=== PATIENT | female | born 1995 | race Caucasian/White ===

== ENCOUNTER 2016-05-09 13:27 | Emergency (ER) | payer MEDICAID ==
--- NOTE | 2016-05-09 14:03 | ERPHSYRPT ---
- History of Present Illness Time Seen by Provider: 05/09/16 13:33 Historian: patient, family Exam Limitations: no limitations Patient Subjective Stated Complaint: PT STATES THAT SHE RECENLTY FOUND OUT THAT SHE WAS UNSURE WHEN HER LAST PERIOD WAS "I KNOW IT WAS IN MARCH" STATES THAT SHE HAS BEEN HAVING SOME CRAMPING WITH PINKISH SPOTTING "BUT ONLY WHEN I WIPE". X 1 1/2 WEEKS STATES SHE WAS SEEN AT [facility] LAST WEEK FOR THE SAME THING "BUT THEY DIDN'T DO ANYTHING" DENIES VOMITING STATES SHE HAS HAD SOME NAUSEA. Triage Nursing Assessment: PT ALERT WARM AND DRY RESP EASY NON LABORED PT AMBULATED TO ROOM WITHOUT DIFFICULTY. ABDOMEN SOFT NON TENDER. Physician History: patient with LMP first week of Mar 2016; [id number]; EDC ?; hasnt seen her MD yet; abdominal cramps for a week; no bleeding or vag d/c; no N&V; no fever or chills ; sex this am; no pain or bleeding; otherwise healthy Timing/Duration: week(s) (1 ), intermittent, gradual onset Activities at Onset: rest Quality: cramping Abdominal Pain Onset Location: suprapubic Pain Radiation: no radiation Severity of Pain-Max: mild Severity of Pain-Current: mild Modifying Factors: Improves With: nothing Associated Symptoms: denies symptoms Previous symptoms: no prior history Allergies/Adverse Reactions: No Known Drug Allergies Allergy (Verified 10/22/15 15:55) Home Medications: No Reportable Medications [No Reported Medications] 10/26/15 [History] Hx Tetanus, Diphtheria Vaccination/Date Given: Yes Hx Influenza Vaccination/Date Given: No Hx Pneumococcal Vaccination/Date Given: No Immunizations Up to Date: Yes - Review of Systems Constitutional: No Symptoms Eyes: No Symptoms Ears, Nose, & Throat: No Symptoms Respiratory: No Cough, No Dyspnea, No Wheezing Cardiac: No Chest Pain, No Palpitations, No Syncope Abdominal/Gastrointestinal: Abdominal Pain (mild intermittant cramping low), No Nausea, No Vomiting, No Diarrhea, No Constipation Genitourinary Symptoms: No Dysuria, No Frequency, No Hematuria, No Incontinence , No Flank Pain, No Vaginal Bleeding, No Vaginal Discharge, No Vaginal Itching Musculoskeletal: No Symptoms Skin: No Symptoms Neurological: No Symptoms Psychological: No Symptoms Endocrine: No Symptoms Hematologic/Lymphatic: No Symptoms Immunological/Allergic: No Symptoms - Past Medical History Pertinent Past Medical History: No Neurological History: No Pertinent History ENT History: No Pertinent History Cardiac History: No Pertinent History Respiratory History: No Pertinent History Endocrine Medical History: No Pertinent History Musculoskeletal History: No Pertinent History GI Medical History: Other History: No Pertinent History Psycho-Social History: No Pertinent History Female Reproductive Disorders: No Pertinent History - Past Surgical History Past Surgical History: No Neuro Surgical History: No Pertinent History Cardiac: No Pertinent History Respiratory: No Pertinent History Gastrointestinal: No Pertinent History Genitourinary: No Pertinent History Musculoskeletal: No Pertinent History Female Surgical History: No Pertinent History Other Surgical History: DENIES - Social History Smoking Status: Current every day smoker How long have you smoked: 6 YEARS Exposure to second hand smoke: Yes Alcohol Use: None Drug Use: none Patient Lives Alone: No Significant Family History: no pertinent family hx - Female History Hx Last Menstrual Period: Mar Now: Yes - Nursing Vital Signs Nursing Vital Signs: Initial Vital Signs Temperature 98 F Temperature Source Oral Pulse Rate 88 Respiratory Rate 18 Blood Pressure [Right Arm] 103/55 Pain Intensity 5 - Physical Exam General Appearance: mild distress, alert, anxiety, thin Eye Exam: PERRL/EOMI, eyes nml inspection, No photophobia Ears, Nose, Throat Exam: normal ENT inspection, TMs normal, pharynx normal, moist mucous membranes Neck Exam: normal inspection, non-tender, supple, full range of motion, No JVD Respiratory Exam: normal breath sounds, lungs clear, airway intact, No chest tenderness, No respiratory distress, No rhonchi, No wheezing Cardiovascular Exam: regular rate/rhythm, normal heart sounds, normal peripheral pulses, capillary refill <2 sec, No murmur Gastrointestinal/Abdomen Exam: soft, normal bowel sounds, No tenderness, No distention, No mass, No guarding, No rebound, No organomegaly Pelvic Exam: normal external exam, vaginal discharge (clear; no odor; ), other ( slight enlargement of uterus 6- 8 weeks; cx closed), No adnexal tenderness, No adnexal mass, No mass, No cervical motion tenderness, No vaginal bleeding, No uterine tenderness Rectal Exam: deferred Back Exam: normal inspection, normal range of motion, No CVA tenderness Extremity Exam: normal inspection, normal range of motion, No anita's sign, No pedal edema Neurologic Exam: alert, oriented x 3, cooperative, nail welter II-XII nml as tested, normal mood/affect, nml cerebellar function, nml station & gait Skin Exam: normal color, warm, dry, No rash, No petechiae SpO2 Interpretation: normal SpO2: 99 Oxygen Delivery: Room Air - Course Nursing assessment & vital signs reviewed: Yes Ordered Tests: Active Orders 24 hr Category Date Time Status Pelvic Exam Assist STAT Care 05/09/16 13:56 Active Re-Check Vital Signs STAT Care 05/09/16 13:56 Active CBC W DIFF Stat Lab 05/09/16 14:20 Completed HCG QUALITATIVE,SERUM Stat Lab 05/09/16 14:20 Completed UA W/ MICROSCOPIC Stat Lab 05/09/16 14:20 Completed Wet Prep Stat Lab 05/09/16 14:20 Completed Lab/Rad Data: Laboratory Result Diagrams 05/09/16 14:20 Laboratory Results 05/09/16 05/09/16 05/09/16 Range/Units 14:20 14:20 14:20 WBC 8.7 (4.0-10.5) K/mm3 RBC 4.22 (4.1-5.4) M/mm3 Hgb 11.4 L (12.0-16.0) gm/dl Hct 35.2 (35-47) % MCV 83.4 (78-100) fl MCH 27.0 (26-32) pg MCHC 32.4 (32-36) g/dl RDW 14.1 H (11.5-14.0) % Plt Count 216 (150-450) K/mm3 MPV 10.3 H (6-9.5) fl Gran % 74.7 H (36.0-66.0) % Lymphocytes % 18.0 L (24.0-44.0) % Monocytes % 6.1 (0.0-12.0) % Eosinophils % 1.0 (0.00-5.0) % Basophils % 0.2 (0.0-0.4) % Basophils # 0.02 (0-0.4) Serum , Qual POSITIVE (Negative) Ur Collection Type Urine Color (YELLOW) Urine Appearance (CLEAR) Urine pH (5-6) Ur Specific [place] (1.005-1.025) Urine Protein (Negative) Urine Glucose (UA) (NEGATIVE) mg/dL Urine Ketones (NEGATIVE) Urine Nitrite (NEGATIVE) Urine Bilirubin (NEGATIVE) Urine Urobilinogen (0-1) mg/dL Urine WBC (Auto) (NEGATIVE) Urine RBC (Auto) (0-5) Kehinde/ul Urine Microscopic RBC (0-2) /HPF Urine Microscopic WBC (0-5) /HPF Ur Epithelial Cells (FEW) /HPF Urine Bacteria (NEGATIVE) /HPF Urine Mucus (NEGATIVE) /HPF WBC (Wet Prep) Rare RBC (Wet Prep) Moderate Epi Cells (Wet Prep) Few Bacteria (Wet Prep) Few Clue Cells (Wet Prep) None Seen Trichomonas (Wet Prep) None Seen Budding Yeast (Wet Prp) None Seen Specimen Received 05/09/16 Range/Units 14:20 WBC (4.0-10.5) K/mm3 RBC (4.1-5.4) M/mm3 Hgb (12.0-16.0) gm/dl Hct (35-47) % MCV (78-100) fl MCH (26-32) pg MCHC (32-36) g/dl RDW (11.5-14.0) % Plt Count (150-450) K/mm3 MPV (6-9.5) fl Gran % (36.0-66.0) % Lymphocytes % (24.0-44.0) % Monocytes % (0.0-12.0) % Eosinophils % (0.00-5.0) % Basophils % (0.0-0.4) % Basophils # (0-0.4) Serum , Qual (Negative) Ur Collection Type CATH Urine Color YELLOW (YELLOW) Urine Appearance SLIGHTLY CLOUDY (CLEAR) Urine pH 6.0 (5-6) Ur Specific [place] >=1.030 (1.005-1.025) Urine Protein TRACE (Negative) Urine Glucose (UA) NEGATIVE (NEGATIVE) mg/dL Urine Ketones LARGE-160 (NEGATIVE) Urine Nitrite NEGATIVE (NEGATIVE) Urine Bilirubin SMALL (NEGATIVE) Urine Urobilinogen 0.2 (0-1) mg/dL Urine WBC (Auto) NEGATIVE (NEGATIVE) Urine RBC (Auto) NEGATIVE (0-5) Kehinde/ul Urine Microscopic RBC 0-2 (0-2) /HPF Urine Microscopic WBC 0-2 (0-5) /HPF Ur Epithelial Cells FEW (FEW) /HPF Urine Bacteria FEW (NEGATIVE) /HPF Urine Mucus MANY (NEGATIVE) /HPF WBC (Wet Prep) RBC (Wet Prep) Epi Cells (Wet Prep) Bacteria (Wet Prep) Clue Cells (Wet Prep) Trichomonas (Wet Prep) Budding Yeast (Wet Prp) Specimen Received 05/09/16 1466 reviewed - Progress Progress: improved, re-examined (no change) Progress Note: 05/09/16 14:02 will get a pelvic and draw basics and recheck; boyfriend at bedside 05/09/16 15:10 rechecked; resting quietly; no pains; lab all ok; hcg pos; EDC calculated by dates at 12-11-16 so about 9 weeks now 05/09/16 15:26 shared results with patient; treatment plan and d/c instructions given Counseled pt/family regarding: lab results, diagnosis, need for follow-up - Departure Time of Disposition: 15:26 Departure Disposition: Home Clinical Impression: , Abdominal cramping complicating Condition: Stable Critical Care Time: No Referrals: SHAHANA TOWNSEND [Primary Care Provider] - Instructions: -- Discomforts and Remedies Additional Instructions: rest; make an appointment with OB doctor; maternal vitamins; Tylenol Follow-up with family doctor as directed. Call for appointment. Return if any problems. If you smoke please stop. Call or follow up with your family doctor for assistance if you need it to stop. Please wear your seatbelt when driving. Have a nice day. Thank you for allowing us to participate in your care today. :o) Dr Gil Ivey
[2016-05-09 14:43] LABS: BASOPHIL % 0.2 % (0.0-0.4); Granulocytes % 74.7 % (36.0-66.0); Mean Cell Volume 83.4 fl (78-100); Mean Platelet Volume 10.3 fl (6-9.5); Monocytes % 6.1 % (0.0-12.0); Platelet Count 216 K/mm3 (150-450); Red Blood Count 4.22 M/mm3 (4.1-5.4); Red Cell Distribution Width 14.1 % (11.5-14.0); White Blood Count 8.7 K/mm3 (4.0-10.5)
[2016-05-09 14:52] VITALS: BP 103/55
[2016-05-09 15:03] LABS: Collection Type CATH
[2016-05-09 15:04] LABS: COMPLETE URINE MICROSCOPIC? YES
[2016-05-09 15:05] LABS: Bacteria FEW /HPF (NEGATIVE); Bacteria Few; Clue Cells None Seen; Epithelial Cells FEW /HPF (FEW); Mucus MANY /HPF (NEGATIVE); Trichomonas None Seen; WBC 0-2 /HPF (0-5); Yeast None Seen
[2016-05-09 15:48] VITALS: PULSE 75; O2SAT 100
[2016-05-09 17:00] LABS: CHLAMYDIA DNA NEGATIVE
== END 2016-05-09 15:48 | disposition home or self-care (01) ==
LOC: ED 13:27
DX: O26.891 Other specified pregnancy related conditions, first trimester (principal); R10.9 Unspecified abdominal pain
CPT/HCPCS: 36415; 81000; 84703; 85025; 87210; 87490; 87590; 99284; P9612

== ENCOUNTER 2016-12-12 09:00 | Inpatient (IN) | payer MEDICAID ==
[2016-12-12 12:40] LABS: Bilirubin SMALL (NEGATIVE); Collection Type VOID; Glucose NEGATIVE (NEGATIVE); Leukocyte Esterase 2+ (NEGATIVE)
[2016-12-12 12:41] LABS: COMPLETE URINE MICROSCOPIC? YES
[2016-12-12] MEDS ORDERED: Lactated Ringers 1,000 ML IV ONE ×2 (14:04→17:36)
[2016-12-12 14:07] LABS: Bacteria MODERATE /HPF (NEGATIVE); Epithelial Cells FEW /HPF (FEW); WBC 25-50 /HPF (0-5)
--- NOTE | 2016-12-12 15:02 | XRAY ---
Indication: labor. 2-dimensional OB ultrasound performed. Comparison: May 30, 2016. Again there is a single viable intrauterine currently in cephalic presentation. Normal four-chamber heart with heart rate 133 BPM. Normal three-vessel cord and cord insertion. Visualized head, spine, stomach, kidneys, and bladder are unremarkable. Placenta is fundal without abnormal retroplacental fluid. BPD measures 8.82 cm corresponding to 35 weeks 5 days. HC measures 31.08 cm corresponding to 34 weeks 5 days. AC measures 30.25 cm corresponding to 34 weeks 1 day. FL measures 6.58 cm corresponding to 33 weeks 6 days. ESTEE is 14.3 cm. Impression: Again single viable intrauterine with mean gestational age 34 weeks 4 days. Normal progression of . Nothing acute.
[2016-12-12] MEDS ORDERED: ROCEPHIN 1 Gm-D5w 50 ml Bag** 1 G/50 ML IVPB IV ONE (15:35)
[2016-12-12] MEDS: Lactated Ringers 1,000 ML IV SCH (17:44)
[2016-12-12] MEDS ORDERED: Celestone Soluspan 6MG/ML IM ONE (18:37)
[2016-12-12] MEDS ORDERED: OMNIPEN 2 GM / NACL 100ML 100 ML IV ONE (21:19)
[2016-12-13] MEDS: OMNIPEN 1GM / NaCl 100ML 100 ML IV SCH ×2 (01:50→05:42)
[2016-12-13] MEDS: Lactated Ringers 1,000 ML IV SCH (03:24)
--- NOTE | 2016-12-13 09:44 | XRAY ---
Indication: Low heart rate with deceleration. Ultrasound biophysical profile study was performed. Comparison: None There is a single viable intrauterine with heart rate 131 BPM. Four-quadrant ESTEE is 11.1 cm. Largest amniotic pocket measures 4.2 cm. 2 points given for breathing, movements, tone, and qualitative amniotic fluid volume. Impression: Total biophysical profile score is 8 out of 8.
[2016-12-13] MEDS ORDERED: OMNIPEN 1GM / NaCl 100ML 100 ML IV SCH (10:00)
[2016-12-13] MEDS ORDERED: TYLENOL EXTRA STRENGTH 500 MG PO PRN (18:37)
[2016-12-13] MEDS: ROCEPHIN 1 Gm-D5w 50 ml Bag** 1 G/50 ML IVPB IV SCH (18:38)
[2016-12-13] MEDS ORDERED: Celestone Soluspan 6MG/ML IM ONE (19:33)
[2016-12-14] MEDS ORDERED: Lactated Ringers 1,000 ML IV ONE ×2 (08:33→09:21)
[2016-12-14 09:19] LABS: Mean Cell Volume 79.3 fl (78-100); Mean Platelet Volume 9.9 fl (6-9.5); Platelet Count 185 K/mm3 (150-450); Red Cell Distribution Width 14.7 % (11.5-14.0); White Blood Count 14.1 K/mm3 (4.0-10.5)
[2016-12-14] MEDS ORDERED: KEFZOL 1 GM ONE (09:21)
[2016-12-14 09:24] LABS: Mean Corpuscular Hemoglobin 23.6 pg (26-32)
[2016-12-14 09:29] LABS: INR 1.09 (0.8-3.0); PROTIME 12.1 SECONDS (9.95-12.35)
[2016-12-14] MEDS: Lactated Ringers 1,000 ML IV SCH (09:30)
[2016-12-14 09:31] LABS: PTT 22.7 SECONDS (25.3-37.0)
[2016-12-14] MEDS ORDERED: DEMEROL 50 MG IV PRN (10:10)
[2016-12-14] MEDS ORDERED: MORPHINE SULFATE 2 MG INJ IV PRN (10:10)
[2016-12-14] MEDS ORDERED: Anucort-HC SUPPOSITORY PR PRN (10:10)
[2016-12-14] MEDS ORDERED: Mylicon 80MG PO PRN (10:10)
[2016-12-14] MEDS ORDERED: TYLENOL EXTRA STRENGTH 500 MG PO PRN (10:10)
[2016-12-14] MEDS ORDERED: CLARITIN 10 MG PO PRN (10:10)
[2016-12-14] MEDS ORDERED: CORTISONE 1% CREAM TP PRN (10:10)
[2016-12-14] MEDS ORDERED: Zofran 4 MG/2 ML VIAL IV PRN (10:10)
[2016-12-14] MEDS ORDERED: HOLD NARCOTIC ANALGESICS AND SEDATIVES X24 HR MC PRN (10:10)
[2016-12-14] MEDS ORDERED: Dulcolax 10 MG SUPP PR PRN (10:10)
[2016-12-14] MEDS ORDERED: BENADRYL 50 MG/ML IV PRN (10:10)
[2016-12-14] MEDS ORDERED: Narcan 0.4 MG/ML IV PRN (10:10)
[2016-12-14 10:31] LABS: Bilirubin NEGATIVE (NEGATIVE); Blood NEGATIVE Ery/ul (0-5); COMPLETE URINE MICROSCOPIC? NO; Collection Type CATH; Glucose NEGATIVE (NEGATIVE); Leukocyte Esterase NEGATIVE (NEGATIVE)
--- NOTE | 2016-12-14 10:51 | OP ---
SURGERY DATE/TIME: 12/14/2016 0932 PREOPERATIVE DIAGNOSES: 1) Non-reassuring heart tones. 2) 35 3/7 weeks estimated gestational age by seven week ultrasound. POSTOPERATIVE DIAGNOSES: 1) Non-reassuring heart tones. 2) 35 3/7 week estimated gestational age by seven week ultrasound. 3) Breech presentation. PROCEDURE: Primary low transverse section. SURGEON: Azam Sneed M.D. ANESTHESIA: Spinal by Girish Monk CRNA. ESTIMATED BLOOD LOSS: 400 cc. IV FLUIDS: 700 cc of crystalloid. URINE OUTPUT: 350 cc clear straw-colored urine. SPECIMEN: Placenta was sent for pathology. DESCRIPTION OF PROCEDURE: After informed written consent was obtained, the patient was taken to the operating room. She underwent spinal anesthesia. She was prepped and draped in the usual sterile fashion. After adequate level of anesthesia was assessed, a low transverse skin incision was made by knife. Extended down to subcutaneous fat with electrocautery to the level of the fascia which was nicked on both sides of the midline. Fascia was then extended in horizontal fashion using curved Jon scissors. The superior free edge of the fascia was grasped with Alicia clamps and the underlying rectus muscles were dissected free. The same was repeated inferiorly. Next, the peritoneal cavity was opened and extended in horizontal fashion. A bladder flap was created and reflected over the lower uterine segment. Horizontal uterine incision was made by knife and carried down carefully to the level of the amniotic membranes which were artificially ruptured. There was good amount of amniotic fluid present on rupture of membranes. A viable female was delivered from the breech presentation. Oropharynx and nares were bulb suctioned with bulb after delivery. Cord was clamped and cut. The baby was handed off to the awaiting nursery team. Of note, the NICU team from [facility] was present and on standby for the baby. Again, she did have a strong cry immediately upon delivery. The uterus was then exteriorized and the placenta was removed from the uterine cavity. The uterine cavity was then sponge curetted clean with lap sponge. Next, the uterine incision was closed with #1 chromic in a running locked fashion with good closure and good hemostasis. Posterior cul-de-sac was wiped free of blood and clot with moist lap sponge and then the uterus was returned to the peritoneal cavity. The lateral gutters were wiped free of blood and clot. Again the incision was inspected and noted to have good closure and good hemostasis. Next, the fascia layer was closed with 0 Vicryl in a running fashion with good closure and good hemostasis. The subcutaneous fat was irrigated with warm, sterile saline and any areas of bleeding were cauterized with electrocautery. Finally the skin layer was closed with 4-0 undyed Vicryl in a running subcuticular fashion. Steri-Strips and occlusive dressing were placed over the incision and the patient was transferred to the recovery room in excellent condition.
[2016-12-14] MEDS ORDERED: BENADRYL 50 MG/ML ONE (11:01)
[2016-12-14] MEDS: Nubain 10 MG/ML IV PRN ×2 (12:09→20:06)
[2016-12-14] MEDS ORDERED: Naropin 0.5% 30 ML VIAL IJ ONE (15:00)
[2016-12-14] MEDS ORDERED: LIDOCAINE HCL 2% 100 MG/5 ML IJ ONE (15:00)
[2016-12-14] MEDS ORDERED: EPINEPHRINE 1MG/ML AMP IJ ONE (15:00)
[2016-12-14] MEDS: Dextrose 5%-Lr IV Solution 1000 ML 1,000 ML IV SCH ×2 (15:27→21:11)
[2016-12-14] MEDS: ROCEPHIN 1 Gm-D5w 50 ml Bag** 1 G/50 ML IVPB IV SCH (18:00)
[2016-12-14 20:01] LABS: Mean Cell Volume 79.7 fl (78-100); Mean Corpuscular Hemoglobin 23.7 pg (26-32); Mean Platelet Volume 9.7 fl (6-9.5); Platelet Count 215 K/mm3 (150-450); Red Blood Count 2.91 M/mm3 (4.1-5.4); Red Cell Distribution Width 14.6 % (11.5-14.0); White Blood Count 20.2 K/mm3 (4.0-10.5)
[2016-12-14] MEDS: PERCOCET TABLET 5/325MG PO PRN (20:26)
[2016-12-14] MEDS: FERREX 150 PO SCH (21:06)
[2016-12-14] MEDS: Colace 100 MG PO SCH (21:06)
[2016-12-14 21:17] LABS: BAND 6 % (0.0-2.0); Nucleated Red Blood Cell 1 %; Platelet Estimate NORMAL (NORMAL); Polychromasia 1+; Total Cells Counted 100
[2016-12-14] MEDS: MOTRIN 400 MG PO PRN (21:50)
[2016-12-15] MEDS: PERCOCET TABLET 5/325MG PO PRN ×2 (00:33→04:18)
[2016-12-15 03:59] VITALS: O2SAT 97
[2016-12-15] MEDS: Nubain 10 MG/ML IV PRN (05:55)
[2016-12-15 05:57] LABS: Mean Cell Volume 79.2 fl (78-100); Mean Platelet Volume 9.7 fl (6-9.5); Platelet Count 230 K/mm3 (150-450); Red Blood Count 3.12 M/mm3 (4.1-5.4); Red Cell Distribution Width 14.6 % (11.5-14.0); White Blood Count 17.1 K/mm3 (4.0-10.5)
[2016-12-15] MEDS ORDERED: Phenergan 25 MG INJ IM PRN (10:00)
[2016-12-15] MEDS ORDERED: NORCO 5/325 MG PO PRN (10:00)
[2016-12-15] MEDS ORDERED: FERREX 150 PO SCH (10:00)
[2016-12-15] MEDS ORDERED: DEMEROL 75 MG IM PRN (10:00)
[2016-12-15] MEDS ORDERED: Restoril 15 MG PO PRN (10:10)
[2016-12-15] MEDS ORDERED: Ambien 10 MG PO PRN (10:10)
[2016-12-15] MEDS: FERREX 150 PO SCH (10:39)
[2016-12-15] MEDS: Colace 100 MG PO SCH (10:39)
[2016-12-15] MEDS: MOTRIN 400 MG PO PRN (11:22)
[2016-12-15 16:25] VITALS: BP 109/62; PULSE 73
== END 2016-12-15 15:45 | disposition home or self-care (01) | DRG 765 ==
LOC: OB 09:00 → OBSVTOIN 12-14 09:00
PROVIDERS: ADMIT Family Medicine; ATTEND Family Medicine
PROC: 10D00Z1 Extraction of Products of Conception, Low, Open Approach (ICD-10-PCS; principal; 2016-12-14)
DX: O76 Abnormality in fetal heart rate and rhythm complicating labor and delivery (principal); N39.0 Urinary tract infection, site not specified; O32.1XX0 Maternal care for breech presentation, not applicable or unspecified; Z3A.35 35 weeks gestation of pregnancy; Z37.0 Single live birth; D64.9 Anemia, unspecified
CPT/HCPCS: 01961; 36415; 62322; 64425; 76805; 76819; 80307; 81000; 81002; 85025; 85027; 85610; 85730; 86850; 86900; 86901; 86922; 87086; 88307; 94799; 99140; G0378; J0171; J0290; J0690; J0696; J0702; J1200; J2300; J2405; J2795; L0625; A9270-GY

== ENCOUNTER 2018-03-18 02:06 | Emergency (ER) | payer MEDICAID ==
[2018-03-18 02:10] VITALS: O2SAT 100
--- NOTE | 2018-03-18 02:35 | ERPHSYRPT ---
- History of Present Illness Time Seen by Provider: 03/18/18 02:27 Source: patient Exam Limitations: no limitations Patient Subjective Stated Complaint: Fell about 5 hours ago and landed on abdomen, 16 weeks , now having pain on bilateral lower quadrants that radiates to the back Triage Nursing Assessment: Pt c/o of lower abdominal pain and back pain after falling on her abdomen when she tripped going over a baby gate, pt states that she is 16 weeks , pt has been 3 other times with only 2 children and is now with for the 4th time, hypotensive, pulses normal, heart tones 140, rates pain 8/10, minimal pain with palpatation of abdomen Physician History: 23-year-old white female 4 para 2 who states she is 16 weeks , She arrives via medics with complaint of lower abdominal pain, Patient states that she fell 5 hours ago landing on her abdomen on the floor, She states she tripped over a baby gate states she is having lower abdominal pain, She denies any vaginal discharge or bleeding. Past medical history negative past surgical history Timing/Duration: today (5 hours ago) Severity: moderate Modifying Factors: Improves With: other (fell states she is 16 weeks ) Associated Symptoms: abdominal pain (lower abdominal pain), No nausea, No vomiting, No shortness of breath, No heartburn, No diaphoresis, No cough, No chills, No chest pain, No fever, No headaches, No loss of appetite, No malaise, No rash, No syncope, No seizure, No weakness Allergies/Adverse Reactions: No Known Drug Allergies Allergy (Verified 03/18/18 02:19) Home Medications: Vits W-Ca,Fe,FA(<1Mg) [] 1 tab PO DAILY 12/12/16 [History] Hx Tetanus, Diphtheria Vaccination/Date Given: Yes Hx Influenza Vaccination/Date Given: No Hx Pneumococcal Vaccination/Date Given: No - Review of Systems Constitutional: No Fever, No Chills Eyes: No Symptoms Ears, Nose, & Throat: No Symptoms (Joel.) Respiratory: No Cough, No Dyspnea Cardiac: No Chest Pain, No Edema, No Syncope Abdominal/Gastrointestinal: Abdominal Pain, No Nausea, No Vomiting, No Diarrhea , No Constipation, No Hematemesis, No Hematochezia, No Melena, No Dysphagia, No Appetite Changes Genitourinary Symptoms: , No No Symptoms, No Dysuria, No Frequency, No Hematuria, No Hesitancy, No Incontinence, No Urgency, No Urinary Retention, No Flank Pain, No Menorrhagia Musculoskeletal: Back Pain (low back pain), No No Symptoms (and give her normal salin), No Arthralgias, No Neck Pain, No Deformity, No Injury, No Joint Redness , No Joint Pain, No Joint Swelling, No Myalgias (they are irregular 500 mg) Skin: No Rash Neurological: No Dizziness, No Focal Weakness, No Sensory Changes Psychological: No Symptoms Endocrine: No Symptoms All Other Systems: Reviewed and Negative (while actually daughter ) - Past Medical History Pertinent Past Medical History: Yes Neurological History: No Pertinent History ENT History: No Pertinent History Cardiac History: No Pertinent History Respiratory History: No Pertinent History Endocrine Medical History: No Pertinent History Musculoskeletal History: No Pertinent History GI Medical History: No Pertinent History History: No Pertinent History Psycho-Social History: No Pertinent History Female Reproductive Disorders: No Pertinent History - Past Surgical History Past Surgical History: Yes Neuro Surgical History: No Pertinent History Cardiac: No Pertinent History Respiratory: No Pertinent History Gastrointestinal: No Pertinent History Genitourinary: No Pertinent History Musculoskeletal: No Pertinent History Female Surgical History: Section Other Surgical History: DENIES - Social History Smoking Status: Former smoker How long have you smoked: 6 YEARS Exposure to second hand smoke: No Alcohol Use: None Drug Use: none Patient Lives Alone: No Significant Family History: no pertinent family hx - Female History Hx Now: Yes Expected Date of Delivery: 09/01/18 - Nursing Vital Signs Nursing Vital Signs: Initial Vital Signs Temperature 98.3 F 03/18/18 02:07 Pulse Rate 77 03/18/18 02:07 Blood Pressure 104/65 03/18/18 02:07 O2 Sat by Pulse Oximetry 100 03/18/18 02:07 Pain Scale Pain Intensity 8 - Physical Exam General Appearance: mild distress, alert Eye Exam: PERRL/EOMI, eyes nml inspection Ears, Nose, Throat Exam: normal ENT inspection, TMs normal, pharynx normal, moist mucous membranes Neck Exam: normal inspection, non-tender, supple, full range of motion Respiratory Exam: normal breath sounds, lungs clear, No respiratory distress Cardiovascular Exam: regular rate/rhythm, normal heart sounds, normal peripheral pulses, capillary refill <2 sec Gastrointestinal/Abdomen Exam: soft, normal bowel sounds, tenderness ( suprapubic abdominal tenderness), other ( heart tones 140 per nurse), No distention, No mass, No guarding, No ecchymosis, No pulsatile mass, No rebound, No hernia, No hepatomegaly, No organomegaly, No splenomegaly (emergency 141), No bruit Back Exam: normal inspection, normal range of motion, No CVA tenderness, No vertebral tenderness Extremity Exam: normal inspection, normal range of motion, pelvis stable Neurologic Exam: alert, oriented x 3, cooperative, support manager II-XII nml as tested, normal mood/affect, nml cerebellar function, nml station & gait, sensation nml, No motor deficits Skin Exam: normal color, warm, dry, No rash Lymphatic Exam: No adenopathy SpO2 Interpretation: normal (100%) SpO2: 100 Oxygen Delivery: Room Air - Course Nursing assessment & vital signs reviewed: Yes - Radiology Ultrasound Exam OB Ultrasound: Other (OB ultrasound per remediation technician. Interuterine 16 weeks 4 days. heart rate 149. Amniotic fluid index 12.2 cervix 3.3 cm) Ordered Tests: Active Orders 24 hr Category Date Time Status IV Insertion STAT Care 03/18/18 02:23 Active OB >14 WKS 1st GESTATION [US] Stat Exams 03/18/18 02:24 Ordered BMP Stat Lab 03/18/18 02:38 Completed CBC W DIFF Stat Lab 03/18/18 02:38 Completed HCG, Quantitative (Inhouse) Stat Lab 03/18/18 02:38 Completed UA W/RFX UR CULTURE Stat Lab 03/18/18 03:43 Completed Lab/Rad Data: Laboratory Result Diagrams 03/18/18 02:38 03/18/18 02:38 Laboratory Results 03/18/18 03/18/18 03/18/18 Range/Units 03:43 02:38 02:38 WBC 8.0 (4.0-10.5) K/mm3 RBC 3.55 L (4.1-5.4) M/mm3 Hgb 10.1 L (12.0-16.0) gm/dl Hct 30.6 L (35-47) % MCV 86.2 (78-100) fl MCH 28.4 (26-32) pg MCHC 33.0 (32-36) g/dl RDW 14.4 H (11.5-14.0) % Plt Count 159 (150-450) K/mm3 MPV 9.5 (6-9.5) fl Gran % 68.6 H (36.0-66.0) % Eos # (Auto) 0.14 (0-0.5) Absolute Lymphs (auto) 1.91 (1.0-4.6) Absolute Monos (auto) 0.46 (0.0-1.3) Lymphocytes % 23.8 L (24.0-44.0) % Monocytes % 5.7 (0.0-12.0) % Eosinophils % 1.7 (0.00-5.0) % Basophils % 0.2 (0.0-0.4) % Absolute Granulocytes 5.50 (1.4-6.9) Basophils # 0.02 (0-0.4) Sodium 138 (137-145) mmol/L Potassium 3.7 (3.5-5.1) mmol/L Chloride 105 (98-107) mmol/L Carbon Dioxide 25 (22-30) mmol/L Anion Gap 11.0 (5-15) MEQ/L BUN 9 (7-17) mg/dL Creatinine 0.51 L (0.52-1.04) mg/dL Estimated GFR > 60.0 ML/MIN Glucose 81 (74-106) mg/dL Calcium 8.2 L (8.4-10.2) mg/dL Beta HCG, Quant 77942 mIU/ml Urine Color YELLOW (YELLOW) Urine Appearance SLIGHTLY CLOUDY (CLEAR) Urine pH 6.0 (5-6) Ur Specific [place] 1.019 (1.005-1.025) Urine Protein NEGATIVE (Negative) Urine Ketones NEGATIVE (NEGATIVE) Urine Blood NEGATIVE (0-5) Kehinde/ul Urine Nitrite NEGATIVE (NEGATIVE) Urine Bilirubin NEGATIVE (NEGATIVE) Urine Urobilinogen 2 (0-1) mg/dL Ur Leukocyte Esterase TRACE (NEGATIVE) Urine WBC (Auto) 0-2 (0-5) /HPF Urine RBC (Auto) NONE (0-2) /HPF U Epithel Cells (Auto) RARE (FEW) /HPF Urine Bacteria (Auto) RARE (NEGATIVE) /HPF Urine Mucus (Auto) SLIGHT (NEGATIVE) /HPF Urine Culture Reflexed NO (NO) Urine Glucose NEGATIVE (NEGATIVE) mg/dL - Progress Progress: improved Progress Note: 03/18/18 04:08 Patient's pelvic ultrasound essentially normal intrauterine 16 weeks 4 days heart rate 149, amniotic fluid index 12.2 cervix 3.3 cm Patient without complaints after ultrasound. CBC CMP UA essentially normal. Patient had received 500 mL IV normal saline started by medics. Will discharge patient. - Departure Time of Disposition: 04:10 Departure Disposition: Home Clinical Impression: Accidental fall Qualifiers: Encounter type: initial encounter Qualified Code(s): W19.XXXA - Unspecified fall, initial encounter Abdominal contusion Qualifiers: Encounter type: initial encounter Qualified Code(s): S30.1XXA - Contusion of abdominal wall, initial encounter Abdominal pain Qualifiers: Abdominal location: lower abdomen, unspecified Qualified Code(s): R10.30 - Lower abdominal pain, unspecified Qualifiers: Weeks of gestation: 16 weeks Qualified Code(s): Z3A.16 - 16 weeks gestation of Condition: Fair Critical Care Time: No Additional Instructions: Return home. Plenty of fluids. Tylenol every 4 hours as needed for pain. Follow-up with your family doctor or PRIOR AUTHORIZATION NURSE physician. Return for acute distress or for severe symptoms.
[2018-03-18 02:41] LABS: BASOPHIL % 0.2 % (0.0-0.4); Basophil (Absolute #) 0.02 (0-0.4); Eosinophil % 1.7 % (0.00-5.0); Eosinophil (Absolute #) 0.14 (0-0.5); Granulocytes % 68.6 % (36.0-66.0); Hematocrit 30.6 % (35-47); Hemoglobin 10.1 gm/dl (12.0-16.0); Lymphocyte (Absolute #) 1.91 (1.0-4.6); Lymphocytes % 23.8 % (24.0-44.0); Mean Cell Volume 86.2 fl (78-100); Mean Platelet Volume 9.5 fl (6-9.5); Monocyte (Absolute #) 0.46 (0.0-1.3); Monocytes % 5.7 % (0.0-12.0); Platelet Count 159 K/mm3 (150-450); Red Blood Count 3.55 M/mm3 (4.1-5.4); Red Cell Distribution Width 14.4 % (11.5-14.0)
[2018-03-18 03:05] LABS: Mean Corpuscular Hemoglobin 28.4 pg (26-32)
[2018-03-18 03:09] LABS: BLOOD UREA NITROGEN 9 mg/dL (7-17); CHLORIDE 105 mmol/L (98-107); Calcium 8.2 mg/dL (8.4-10.2); Carbon Dioxide 25 mmol/L (22-30); Creatinine 1 0.51 mg/dL (0.52-1.04); Glucose 81 mg/dL (74-106); Potassium 3.7 mmol/L (3.5-5.1); SODIUM 138 mmol/L (137-145)
[2018-03-18 03:37] LABS: HCG, Quantitative (Inhouse) 19314 mIU/ml
[2018-03-18 04:02] LABS: Appearance SLIGHTLY CLOUDY (CLEAR); Bacteria RARE /HPF (NEGATIVE); Bilirubin NEGATIVE (NEGATIVE); Blood NEGATIVE Ery/ul (0-5); Epithelial Cells RARE /HPF (FEW); Glucose NEGATIVE (NEGATIVE); Ketones NEGATIVE (NEGATIVE); Leukocyte Esterase TRACE (NEGATIVE); Mucus SLIGHT /HPF (NEGATIVE); Nitrite NEGATIVE (NEGATIVE); Protein,Urine Dip NEGATIVE (Negative); Specific Gravity 1.019 (1.005-1.025); Urobilinogen 2 mg/dL (0-1); WBC 0-2 /HPF (0-5)
[2018-03-18 04:19] VITALS: BP 119/74; PULSE 79
--- NOTE | 2018-03-18 08:41 | XRAY ---
Indication: Status post fall. Two-dimensional OB ultrasound performed. Comparison: January 21, 2018. Again there is a single viable intrauterine currently in breech presentation. heart rate 149 BPM. Visualized stomach and bladder are unremarkable. Predominantly posterior placenta without abruption/previa. BPD measures 3.45 cm corresponding to 16 weeks 5 days. HC measures 12.20 cm corresponding to 16 weeks 1 day. AC measures 10.89 cm corresponding to 16 weeks 5 days. FL measures 2.14 cm corresponding to 16 weeks 3 days. ESTEE is 12.2 cm. Impression: Again single viable intrauterine with mean gestational age 16 weeks 4 days. No new/acute findings. Comment: Preliminary report was given.
== END 2018-03-18 04:19 | disposition home or self-care (01) ==
LOC: ED 02:06
DX: S30.1XXA Contusion of abdominal wall, initial encounter (principal); R10.30 Lower abdominal pain, unspecified; Z3A.16 16 weeks gestation of pregnancy; W19.XXXA Unspecified fall, initial encounter
CPT/HCPCS: 36415; 76805; 80048; 81001; 84702; 85025; 99284

== ENCOUNTER 2018-04-27 16:58 | Observation (INO) | payer OTHER ==
[2018-04-27 17:24] VITALS: BP 104/55; PULSE 68
[2018-04-27 18:34] LABS: Appearance CLEAR (CLEAR); Bacteria RARE /HPF (NEGATIVE); Bilirubin SMALL (NEGATIVE); Blood SMALL Ery/ul (0-5); Epithelial Cells RARE /HPF (FEW); Glucose NEGATIVE (NEGATIVE); Ketones TRACE (NEGATIVE); Leukocyte Esterase NEGATIVE (NEGATIVE); Mucus SLIGHT /HPF (NEGATIVE); Nitrite NEGATIVE (NEGATIVE); Protein,Urine Dip 30 (Negative); RBC 26-50 /HPF (0-2); Specific Gravity 1.023 (1.005-1.025); Urobilinogen 4 mg/dL (0-1)
[2018-04-27 18:39] LABS: Amphetamine,Urine NEGATIVE (NEGATIVE); Barbiturate,Urine NEGATIVE (NEGATIVE); Benzodiazepine,Urine NEGATIVE (NEGATIVE); Cocaine,Urine NEGATIVE (NEGATIVE); Methadone,Urine NEGATIVE (NEGATIVE); Opiate,Urine NEGATIVE (NEGATIVE); PCP,Urine NEGATIVE (NEGATIVE); THC,Urine NEGATIVE (NEGATIVE)
== END 2018-04-27 19:10 | disposition home or self-care (01) ==
LOC: OB 16:58 → UNDOADMOB 16:58 → UNDODISOB 19:10
PROVIDERS: ADMIT Family Medicine; ATTEND Family Medicine
DX: Z34.82 Encounter for supervision of other normal pregnancy, second trimester (principal)
CPT/HCPCS: 80307; 81001; 87086; G0378

== ENCOUNTER 2018-05-23 21:49 | Observation (INO) | payer OTHER ==
[2018-05-23] MEDS ORDERED: Lactated Ringers 1,000 ML IV ONE (22:26)
[2018-05-23] MEDS ORDERED: BRETHINE 1 MG/ML SQ ONE (22:30)
[2018-05-23 22:44] LABS: Appearance CLOUDY (CLEAR); Bacteria FEW /HPF (NEGATIVE); Bilirubin NEGATIVE (NEGATIVE); Blood SMALL Ery/ul (0-5); Glucose NEGATIVE (NEGATIVE); Ketones NEGATIVE (NEGATIVE); Leukocyte Esterase LARGE (NEGATIVE); Mucus SLIGHT /HPF (NEGATIVE); Nitrite NEGATIVE (NEGATIVE); Protein,Urine Dip NEGATIVE (Negative); Specific Gravity 1.011 (1.005-1.025); Urobilinogen 4 mg/dL (0-1); WBC >100 /HPF (0-5)
[2018-05-24] MEDS: Lactated Ringers 1,000 ML IV SCH ×3 (00:11→16:00)
[2018-05-24] MEDS ORDERED: BRETHINE 1 MG/ML ONE ×2 (00:30→02:24)
[2018-05-24] MEDS ORDERED: PROCARDIA 10 MG PO ONE (01:00)
[2018-05-24] MEDS ORDERED: BRETHINE 1 MG/ML SQ ONE (01:00)
[2018-05-24] MEDS ORDERED: PROCARDIA 10 MG ONE (02:24)
[2018-05-24 08:00] LABS: ALKALINE PHOSPHATASE 70 U/L (38-126); BLOOD UREA NITROGEN 5 mg/dL (7-17); CHLORIDE 103 mmol/L (98-107); Calcium 8.2 mg/dL (8.4-10.2); Carbon Dioxide 24 mmol/L (22-30); Creatinine 1 0.49 mg/dL (0.52-1.04); Glucose 85 mg/dL (74-106); SGOT/AST 9 U/L (14-36); SGPT/ALT 9 U/L (0-35); SODIUM 136 mmol/L (137-145)
[2018-05-24 08:02] LABS: BASOPHIL % 0.2 % (0.0-0.4); Basophil (Absolute #) 0.02 (0-0.4); Eosinophil % 0.1 % (0.00-5.0); Eosinophil (Absolute #) 0.01 (0-0.5); Granulocyte Absolute (ANC) 9.18 (1.4-6.9); Granulocytes % 80.6 % (36.0-66.0); Hematocrit 26.9 % (35-47); Hemoglobin 8.5 gm/dl (12.0-16.0); Lymphocyte (Absolute #) 1.11 (1.0-4.6); Lymphocytes % 9.7 % (24.0-44.0); Mean Cell Volume 89.7 fl (78-100); Mean Corpuscular Hemoglobin 28.3 pg (26-32); Mean Corpuscular Hgb Concent. 31.6 g/dl (32-36); Monocyte (Absolute #) 1.07 (0.0-1.3); Monocytes % 9.4 % (0.0-12.0); Platelet Count 156 K/mm3 (150-450); Red Cell Distribution Width 12.8 % (11.5-14.0); White Blood Count 11.4 K/mm3 (4.0-10.5)
[2018-05-24] MEDS ORDERED: ROCEPHIN 1 Gm-D5w 50 ml Bag** 1 G/50 ML IVPB IV SCH (10:00)
[2018-05-24] MEDS: PROCARDIA 10 MG PO SCH ×3 (10:05→21:26)
[2018-05-24 11:18] LABS: Amphetamine,Urine NEGATIVE (NEGATIVE); Barbiturate,Urine NEGATIVE (NEGATIVE); Benzodiazepine,Urine NEGATIVE (NEGATIVE); Cocaine,Urine NEGATIVE (NEGATIVE); Methadone,Urine NEGATIVE (NEGATIVE); Opiate,Urine NEGATIVE (NEGATIVE); PCP,Urine NEGATIVE (NEGATIVE); THC,Urine NEGATIVE (NEGATIVE)
[2018-05-24] MEDS: ROCEPHIN 1 Gm-D5w 50 ml Bag** 1 G/50 ML IVPB IV SCH (21:26)
[2018-05-25] MEDS: Lactated Ringers 1,000 ML IV SCH ×3 (01:17→18:07)
[2018-05-25 05:59] VITALS: O2SAT 97
[2018-05-25] MEDS: PROCARDIA 10 MG PO SCH ×4 (09:15→22:05)
[2018-05-25] MEDS: Phenergan 25 MG INJ IV PRN (17:31)
[2018-05-25] MEDS: ROCEPHIN 1 Gm-D5w 50 ml Bag** 1 G/50 ML IVPB IV SCH (22:04)
[2018-05-26] MEDS: Phenergan 25 MG INJ IV PRN (00:58)
[2018-05-26] MEDS: Lactated Ringers 1,000 ML IV SCH (02:11)
[2018-05-26 05:41] VITALS: BP 98/55; PULSE 94
[2018-05-26] MEDS: PROCARDIA 10 MG PO SCH (09:29)
== END 2018-05-26 11:20 | disposition home or self-care (01) ==
LOC: OB 21:49
PROVIDERS: ADMIT Family Medicine; ATTEND Family Medicine
DX: O23.02 Infections of kidney in pregnancy, second trimester (principal); Z3A.25 25 weeks gestation of pregnancy
CPT/HCPCS: 36415; 80053; 80307; 81001; 85025; 87077; 87086; 87186; 96372; G0378; J0696; J2550; A9270-GY

== ENCOUNTER 2018-08-12 13:03 | Observation (INO) | payer OTHER ==
[2018-08-12 13:39] VITALS: BP 117/72; PULSE 92
[2018-08-12 16:02] LABS: Amphetamine,Urine NEGATIVE (NEGATIVE); Barbiturate,Urine NEGATIVE (NEGATIVE); Benzodiazepine,Urine NEGATIVE (NEGATIVE); Cocaine,Urine NEGATIVE (NEGATIVE); Methadone,Urine NEGATIVE (NEGATIVE); Opiate,Urine NEGATIVE (NEGATIVE); PCP,Urine NEGATIVE (NEGATIVE); THC,Urine NEGATIVE (NEGATIVE)
[2018-08-12 16:16] LABS: Appearance CLEAR (CLEAR); Bacteria MODERATE /HPF (NEGATIVE); Bilirubin NEGATIVE (NEGATIVE); Blood NEGATIVE Ery/ul (0-5); Epithelial Cells RARE /HPF (FEW); Glucose NEGATIVE (NEGATIVE); Ketones NEGATIVE (NEGATIVE); Leukocyte Esterase TRACE (NEGATIVE); Mucus SLIGHT /HPF (NEGATIVE); Nitrite NEGATIVE (NEGATIVE); Protein,Urine Dip NEGATIVE (Negative); Specific Gravity 1.002 (1.005-1.025); Urobilinogen NEGATIVE mg/dL (0-1)
== END 2018-08-12 17:35 | disposition home or self-care (01) ==
LOC: MED SURG 13:03 → OB 13:04
PROVIDERS: ADMIT Family Medicine; ATTEND Family Medicine
DX: Z34.83 Encounter for supervision of other normal pregnancy, third trimester (principal)
CPT/HCPCS: 80307; 81001; G0378

== ENCOUNTER 2018-11-02 20:29 | Emergency (ER) | payer OTHER ==
[2018-11-02 21:50] VITALS: BP 124/76; PULSE 66; O2SAT 100
--- NOTE | 2018-11-02 22:08 | ERPHSYRPT ---
- History of Present Illness Time Seen by Provider: 11/02/18 22:02 Source: patient Exam Limitations: no limitations Patient Subjective Stated Complaint: Pt states she has constant shooting pain on the left side of her face. She has a chipped tooth on the bottom and keeps having sharp pains in the teeth around it. States she can't get in to the dentist until 11/07/18 Triage Nursing Assessment: Pt a&o. Ambulated to bed. Respirations easy and non- labored. Afebrile. Pt left back molar chipped. No swelling present Physician History: pt has poor denition and chiped left lower molar now with pain on percussion reproducible - no pointing to drain - swallowing OK and no digastric tenderness supple neck anterior and floor of mouth ; Timing/Duration: persistent, days Severity: moderate ENT Location: dental Prearrival Treatment: over the counter meds Modifying Factors: Improves With: other (eating hurts.) Associated Symptoms: facial pain/swelling, tooth pain, No sore throat, No difficulty swallowing Allergies/Adverse Reactions: No Known Drug Allergies Allergy (Verified 08/12/18 13:24) Hx Tetanus, Diphtheria Vaccination/Date Given: (unknown when) Hx Influenza Vaccination/Date Given: No Hx Pneumococcal Vaccination/Date Given: No - Review of Systems Constitutional: No Fever, No Chills Eyes: No Symptoms Ears, Nose, & Throat: Other (left lower molar pain and swelling lateral) Respiratory: No Cough, No Dyspnea Cardiac: No Chest Pain, No Edema, No Syncope Abdominal/Gastrointestinal: No Abdominal Pain, No Nausea, No Vomiting, No Diarrhea Genitourinary Symptoms: No Dysuria Musculoskeletal: No Back Pain, No Neck Pain Skin: No Rash Neurological: No Dizziness, No Focal Weakness, No Sensory Changes Psychological: No Symptoms Endocrine: No Symptoms All Other Systems: Reviewed and Negative - Past Medical History Pertinent Past Medical History: Yes Neurological History: No Pertinent History ENT History: No Pertinent History Cardiac History: No Pertinent History Respiratory History: No Pertinent History Endocrine Medical History: No Pertinent History Musculoskeletal History: No Pertinent History GI Medical History: No Pertinent History History: No Pertinent History Psycho-Social History: No Pertinent History Female Reproductive Disorders: No Pertinent History - Past Surgical History Past Surgical History: Yes Neuro Surgical History: No Pertinent History Cardiac: No Pertinent History Respiratory: No Pertinent History Gastrointestinal: No Pertinent History Genitourinary: No Pertinent History Musculoskeletal: No Pertinent History Female Surgical History: Section Other Surgical History: DENIES - Social History Smoking Status: Former smoker How long have you smoked: 6 YEARS Exposure to second hand smoke: No Alcohol Use: None Drug Use: none Patient Lives Alone: No Significant Family History: no pertinent family hx - Female History Hx Last Menstrual Period: 10/29/18 Hx Now: No - Nursing Vital Signs Nursing Vital Signs: Initial Vital Signs Temperature 98.7 F 11/02/18 21:43 Pulse Rate 66 11/02/18 21:43 Respiratory Rate 18 11/02/18 21:43 Blood Pressure 124/76 11/02/18 21:43 O2 Sat by Pulse Oximetry 100 11/02/18 21:43 Pain Scale Pain Intensity 10 - Physical Exam General Appearance: no apparent distress Eye Exam: bilateral eye: normal inspection, PERRL, EOMI Ear Exam: bilateral ear: auricle normal, canal normal, TM normal Throat Exam: pharynx normal, dental tenderness, mandibular swelling, No excessive drooling, No maxillary swelling, No pharynx swelling, No pharynx tenderness, No tongue swollen, No trismus, No voice changes Neck Exam: non-tender, supple, full range of motion, trachea midline Cardiovascular/Respiratory Exam: chest non-tender, normal breath sounds Abdominal Exam: non-tender, soft Neurologic Exam: alert, oriented x 3, sensation nml, No motor deficits Skin Exam: normal color, warm, dry SpO2 Interpretation: normal SpO2: 100 - Course Nursing assessment & vital signs reviewed: Yes - Progress Progress: improved, re-examined Counseled pt/family regarding: diagnosis, need for follow-up - Departure Departure Disposition: Home Clinical Impression: Dental abscess Condition: Good Critical Care Time: No Referrals: SHAHANA TOWNSEND [Primary Care Provider] - Instructions: Tooth Abscess (DC) Additional Instructions: see your dentist this week for definitive therapy return meantime if not improving, trouble swallowing or other concerns or increased swelling. Prescriptions: Hydrocodone/APAP 5-325 Tab^^^ [[place] 5-325 Tablet^^^] 1 tab PO Q6HPRN PRN #10 tablet MDD 6 PRN Reason: Pain Amoxicillin/Potassium Clav [Augmentin 875-125 Tablet] 875 mg PO BID #20 tablet
[2018-11-02] MEDS ORDERED: NORCO 5/325 MG PO ONE (22:14)
[2018-11-02] MEDS ORDERED: Augmentin 875-125 Tablet PO ONE (22:15)
[2018-11-02] MEDS ORDERED: NORCO 5/325 MG ONE (22:16)
[2018-11-02] MEDS ORDERED: Augmentin 875-125 Tablet ONE (22:16)
== END 2018-11-02 22:20 | disposition home or self-care (01) ==
LOC: ED 20:29
DX: K04.7 Periapical abscess without sinus (principal)
CPT/HCPCS: 99283; A9270-GY

== ENCOUNTER 2019-02-11 10:44 | Emergency (ER) | payer OTHER ==
[2019-02-11 11:04] VITALS: O2SAT 98
--- NOTE | 2019-02-11 11:07 | ERPHSYRPT ---
- History of Present Illness Time Seen by Provider: 02/11/19 11:05 Patient Subjective Stated Complaint: "I have been having vaginal bleeding that on 02/05 and I have been soaking a pad an hour for the past 2 days. I have lower diffused abd cramping today. I also maybe . I had a 6 months ago and abnormal periods after that. I had a IUD placed and issues with dislodgment. I had a different IUD placed on 01/24/19." Triage Nursing Assessment: Pt presents to ER with complaints of vaginal bleeding. Pt is able to walk back to room without difficulty. Pt is alert and oriented x 3. Pt is communicable and pleasant with ER staff. Pt states complaints of vaginal bleeding x 6 days, worse in the past two days. States been soaking a pad an hour. Pt states blood is bright and dark red, denies clots. Pt states she may be and has been having issues with IUD that was placed a month ago. Pt lungs and clear throughout. Abd soft and tender to touch. Rates pain 8/10 scale. Pulse, motor, sensory x 4 extremities is normal. Pt skin is pink, warm, and dry. Pt states goes to [facility]. Physician History: The patient is a 23-year-old female with a past history significant for a in addition to an IUD placed on 24 January per her report for control reasons presents with a chief complaint vaginal bleeding and abdominal cramping. She endorses having vaginal bleeding that started on for 06 February and reportedly has had daily bleeding since that time. She endorses using/soaking through 10 pads this morning and 6-8 pads yesterday in addition to a similar amount as the day before that. 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 She endorses having cramping suprapubic abdominal pain has been off and on for the past few days. She denies dysuria, increased frequency, hesitancy, vaginal discharge.. She refers to take ibuprofen in addition to Midol for pain in her last dose of any these medications was last night. She denies fever, chills, cough, nausea, vomiting, diarrhea constipation. She's not anticoagulated nor does she take antiplatelets. Timing/Duration: other (02/05/19) Severity: mild Allergies/Adverse Reactions: No Known Drug Allergies Allergy (Verified 02/11/19 11:04) Hx Tetanus, Diphtheria Vaccination/Date Given: Yes Hx Influenza Vaccination/Date Given: Yes Hx Pneumococcal Vaccination/Date Given: No Immunizations Up to Date: Yes - Review of Systems Constitutional: No Fever, No Chills, No Fatigue, No Weakness Eyes: No Symptoms Ears, Nose, & Throat: No Symptoms Respiratory: No Dyspnea, No Dyspnea on Exertion (THRASHER), No Stridor, No Wheezing Cardiac: No Symptoms, No Chest Pain Abdominal/Gastrointestinal: Abdominal Pain, No Nausea, No Vomiting, No Diarrhea , No Constipation, No Hematemesis, No Hematochezia, No Melena, No Appetite Changes Genitourinary Symptoms: Vaginal Bleeding, No Dysuria, No Frequency, No Hematuria , No Hesitancy, No Flank Pain, No Vaginal Discharge, No Vaginal Itching Musculoskeletal: No Symptoms Skin: No Symptoms Neurological: No Symptoms Psychological: No Symptoms Endocrine: No Symptoms Immunological/Allergic: No Symptoms All Other Systems: Reviewed and Negative - Past Medical History Pertinent Past Medical History: Yes Neurological History: No Pertinent History ENT History: No Pertinent History Cardiac History: No Pertinent History Respiratory History: No Pertinent History Endocrine Medical History: No Pertinent History Musculoskeletal History: No Pertinent History GI Medical History: No Pertinent History History: No Pertinent History Psycho-Social History: No Pertinent History Female Reproductive Disorders: No Pertinent History - Past Surgical History Past Surgical History: Yes Neuro Surgical History: No Pertinent History Cardiac: No Pertinent History Respiratory: No Pertinent History Gastrointestinal: No Pertinent History Genitourinary: No Pertinent History Musculoskeletal: No Pertinent History Female Surgical History: Section Other Surgical History: DENIES - Social History Smoking Status: Former smoker How long have you smoked: 6 YEARS Exposure to second hand smoke: No Alcohol Use: None Drug Use: none Patient Lives Alone: No Significant Family History: no pertinent family hx - Female History Hx Last Menstrual Period: 01/15/2019 Hx Now: No (Possibly) - Nursing Vital Signs Nursing Vital Signs: Initial Vital Signs Temperature 97.9 F 02/11/19 10:52 Pulse Rate 77 02/11/19 10:52 Respiratory Rate 18 02/11/19 10:52 Blood Pressure 119/56 02/11/19 10:52 O2 Sat by Pulse Oximetry 98 02/11/19 10:52 Pain Scale Pain Intensity 6 - Physical Exam General Appearance: no apparent distress Eye Exam: PERRL/EOMI Ears, Nose, Throat Exam: normal ENT inspection Neck Exam: normal inspection Respiratory Exam: normal breath sounds, lungs clear, No chest tenderness, No respiratory distress, No airway intact Cardiovascular Exam: regular rate/rhythm, normal heart sounds, normal peripheral pulses, No murmur, No friction rub, No gallop, No tachycardia Gastrointestinal/Abdomen Exam: soft, tenderness, other (Mild suprapubic abdominal tenderness with no rebound tenderness ), No distention, No rebound, No hernia, No hepatomegaly Pelvic Exam: vaginal bleeding, uterine tenderness, other (No brisk hemorrhage, no cervical lesion or mass. IUD strings noted positioned in the external cervical os), No adnexal mass, No mass, No cervical motion tenderness, No vaginal discharge Rectal Exam: deferred Back Exam: normal inspection Neurologic Exam: alert, oriented x 3, normal mood/affect Skin Exam: normal color, warm, dry, No rash, No petechiae, No jaundice, No abrasion, No cyanosis, No diaphoresis SpO2 Interpretation: normal SpO2: 98 O2 Delivery: Room Air - Radiology Ultrasound Exam Pelvis Ultrasound: No Mass (No ectopic , correct position of IUD, otherwise normal exam) Ordered Tests: Medication Summary Discontinued Medications Generic Name Dose Route Start Last Admin Trade Name Shruthi PRN Reason Stop Dose Admin Acetaminophen 1,000 mg 02/11/19 11:16 02/11/19 11:34 Tylenol Extra Strength 500 Mg PO 02/11/19 11:17 1,000 mg STAT STA Administration Acetaminophen Confirm 02/11/19 11:32 Tylenol Extra Strength 500 Mg Administered 02/11/19 11:33 Dose 1,000 mg .ROUTE .STK-MED ONE Ketorolac Tromethamine 15 mg 02/11/19 11:15 02/11/19 11:34 Toradol 30 Mg Injection IV 02/11/19 11:16 15 mg STAT ONE Administration Ketorolac Tromethamine Confirm 02/11/19 11:32 Toradol 30 Mg Injection Administered 02/11/19 11:33 Dose 30 mg .ROUTE .STK-MED ONE Lab/Rad Data: Laboratory Result Diagrams 12/10/19 11:05 Laboratory Results 02/11/19 02/11/19 02/11/19 Range/Units 12:07 12:07 11:05 WBC 4.5 (4.0-10.5) K/mm3 RBC 3.73 L (4.1-5.4) M/mm3 Hgb 10.0 L (12.0-16.0) gm/dl Hct 31.7 L (35-47) % MCV 85.0 (78-100) fl MCH 26.8 (26-32) pg MCHC 31.5 L (32-36) g/dl RDW 14.4 H (11.5-14.0) % Plt Count 201 (150-450) K/mm3 MPV 10.0 H (6-9.5) fl Gran % 57.4 (36.0-66.0) % Eos # (Auto) 0.16 (0-0.5) Absolute Lymphs (auto) 1.44 (1.0-4.6) Absolute Monos (auto) 0.29 (0.0-1.3) Lymphocytes % 32.1 (24.0-44.0) % Monocytes % 6.5 (0.0-12.0) % Eosinophils % 3.6 (0.00-5.0) % Basophils % 0.4 (0.0-0.4) % Absolute Granulocytes 2.58 (1.4-6.9) Basophils # 0.02 (0-0.4) Urine Color YELLOW (YELLOW) Urine Appearance SLIGHTLY CLOUDY (CLEAR) Urine pH 5.0 (5-6) Ur Specific [place] 1.029 (1.005-1.025) Urine Protein 30 (Negative) Urine Ketones NEGATIVE (NEGATIVE) Urine Blood LARGE (0-5) [place]/ul Urine Nitrite NEGATIVE (NEGATIVE) Urine Bilirubin NEGATIVE (NEGATIVE) Urine Urobilinogen 2 (0-1) mg/dL Ur Leukocyte Esterase TRACE (NEGATIVE) Urine WBC (Auto) 3-5 (0-5) /HPF Urine RBC (Auto) >101 (0-2) /HPF U Epithel Cells (Auto) FEW (FEW) /HPF Urine Bacteria (Auto) RARE (NEGATIVE) /HPF Urine Mucus (Auto) MODERATE (NEGATIVE) /HPF Urine Culture Reflexed YES (NO) Urine Glucose NEGATIVE (NEGATIVE) mg/dL Urine HCG, Qual NEGATIVE (Negative) - Progress Progress: improved Progress Note: 02/11/19 13:28 transvaginal ultrasound relatively benign with normal placement of her IUD. Beta-hCG urine was negative and she had no evidence of UTI on her UA. The blood in her UA is likely reflective of her vaginal bleeding. - Departure Departure Disposition: Home Clinical Impression: Vaginal bleeding, Abdominal pain Condition: Stable Critical Care Time: No Referrals: SHAHANA TOWNSEND [Primary Care Provider] - Instructions: Acute Abdomen (Belly Pain), Heavy Periods Additional Instructions: Please followup with her machine molder squeeze as scheduled. If you have an appointment scheduled please call your machine molder squeeze as scheduled on this it is possible. Otherwise followup with her primary care provider today at 2 PM. Plan of Treatment: Nontoxic in appearance. CBC reviewed and Hgb appears to be resssuring. VS reassuring as well given the amount of bleeding the patient reports. TVUS with no mass, IUP, or IUD noted to be in proper position with no evidence of suggest visceral perforation. The patient may be suffering from some breakthrough bleeding and was provided with reassurance and instructed to f/u with her PCP as scheduled later today. She agreed with and verbally understood the discharge plan. Prescriptions: Naproxen 500 mg [Naprosyn 500 MG] 500 mg PO BID #10 tablet
[2019-02-11] MEDS ORDERED: TORAdol 30 mg Injection IV ONE (11:15)
[2019-02-11] MEDS ORDERED: TYLENOL EXTRA STRENGTH 500 MG PO STA (11:16)
[2019-02-11 11:32] LABS: Absolute Neutrophil Ct (ANC) 2.58 (1.4-6.9); BASOPHIL % 0.4 % (0.0-0.4); Basophil (Absolute #) 0.02 (0-0.4); Eosinophil % 3.6 % (0.00-5.0); Eosinophil (Absolute #) 0.16 (0-0.5); Hematocrit 31.7 % (35-47); Lymphocyte (Absolute #) 1.44 (1.0-4.6); Lymphocytes % 32.1 % (24.0-44.0); Mean Corpuscular Hemoglobin 26.8 pg (26-32); Mean Corpuscular Hgb Concent. 31.5 g/dl (32-36); Monocyte (Absolute #) 0.29 (0.0-1.3); Monocytes % 6.5 % (0.0-12.0); Neutrophil % 57.4 % (36.0-66.0); Platelet Count 201 K/mm3 (150-450); Red Blood Count 3.73 M/mm3 (4.1-5.4); Red Cell Distribution Width 14.4 % (11.5-14.0); White Blood Count 4.5 K/mm3 (4.0-10.5)
[2019-02-11] MEDS ORDERED: TYLENOL EXTRA STRENGTH 500 MG ONE (11:32)
[2019-02-11] MEDS ORDERED: TORAdol 30 mg Injection ONE (11:32)
[2019-02-11 12:19] LABS: Appearance SLIGHTLY CLOUDY (CLEAR); Bacteria RARE /HPF (NEGATIVE); Bilirubin NEGATIVE (NEGATIVE); Blood LARGE Ery/ul (0-5); Epithelial Cells FEW /HPF (FEW); Glucose NEGATIVE (NEGATIVE); Ketones NEGATIVE (NEGATIVE); Leukocyte Esterase TRACE (NEGATIVE); Mucus MODERATE /HPF (NEGATIVE); Nitrite NEGATIVE (NEGATIVE); Protein,Urine Dip 30 (Negative); Specific Gravity 1.029 (1.005-1.025); Urobilinogen 2 mg/dL (0-1)
[2019-02-11 12:20] LABS: RBC >101 /HPF (0-2)
--- NOTE | 2019-02-11 13:19 | XRAY ---
Exam: Transvaginal pelvic ultrasound from 02/11/2019. Comparison: None. Indication: Vaginal bleeding with IUD placement, evaluate IUD placement and evidence for perforation, mass, IUP, or ectopic . Negative hCG. Technique: Multiple longitudinal and transverse transvaginal sonogram images were obtained. Findings: A normal-sized anteflexed uterus is seen measuring 9.9 cm in length, 4.1 cm in AP depth, and 6.4 cm in width. The uterine myometrium appears of uniform echotexture without evidence of mass. AP dimension of the endometrium on the midline sagittal image measures 4.4 mm. A bright reflector is seen within the endometrial canal of the upper uterine segment consistent with an IUD. This appears in satisfactory position. No abnormal endometrial fluid is seen. The right ovary measures 3.2 cm x 2.1 cm x 3.1 cm and is remarkable for some small sub-5 mm in diameter follicles. Normal color blood flow and Doppler signal is seen within the right ovary. No right ovarian mass or fluid collection is seen. The left ovary measures 1.9 cm x 2.9 cm x 2.1 cm and is remarkable for several scattered follicles, the largest measuring up to 6 mm in diameter. Normal color flow and Doppler signal is seen within the left ovary. No left ovarian mass or free intraperitoneal fluid is seen. The cul-de-sac appears unremarkable. Impression: 1. An IUD is seen in unremarkable position within the endometrial canal. 2. The remainder of the pelvic ultrasound appears unremarkable.
[2019-02-11 13:49] VITALS: BP 115/64; PULSE 83
== END 2019-02-11 13:49 ==
LOC: ED 10:44
DX: N93.9 Abnormal uterine and vaginal bleeding, unspecified (principal); R10.9 Unspecified abdominal pain
CPT/HCPCS: 36415; 76830; 81001; 84703; 85025; 87086; 96374; 99284; J1885; A9270-GY

== ENCOUNTER 2019-03-22 00:22 | Emergency (ER) | payer OTHER ==
[2019-03-22] MEDS ORDERED: Sodium Chloride 0.9% 1000 ML 1,000 ML IV STA (00:39)
[2019-03-22] MEDS ORDERED: Sodium Chloride 0.9% 1000 ML 1,000 ML ONE (01:24)
--- NOTE | 2019-03-22 01:51 | ERPHSYRPT ---
- History of Present Illness Time Seen by Provider: 03/22/19 00:40 Historian: patient Exam Limitations: no limitations Patient Subjective Stated Complaint: PT STATES SHE HAS HAD PAIN IN ABDOMINAL AREA THAT RADIATES TO BACK. STATES SHE IS AFRAID THAT THE PAIN MAY BE FROM HE IUD Triage Nursing Assessment: PT ALERT AND ORIENTED A STATES HER PAIN IS A 10/10 IN ABDOMEN AREA AND BACK. Physician History: the patient is a 24-year-old female who presents with lower abdominal pain which radiates through to the back.. She says it feels much like what her IUD has migrated in the past. She denies fever chills sweats and she denies nausea vomiting or diarrhea and no change in her urine. Timing/Duration: week(s) (1), constant Activities at Onset: none Quality: cramping, stabbing Abdominal Pain Onset Location: RLQ, LLQ, suprapubic Pain Radiation: back Severity of Pain-Max: moderate Severity of Pain-Current: moderate Modifying Factors: Improves With: nothing Associated Symptoms: denies symptoms Previous symptoms: same symptoms as today Allergies/Adverse Reactions: No Known Drug Allergies Allergy (Verified 02/11/19 11:04) Hx Tetanus, Diphtheria Vaccination/Date Given: Yes Hx Influenza Vaccination/Date Given: Yes Hx Pneumococcal Vaccination/Date Given: No - Review of Systems Constitutional: No Fever, No Chills Eyes: No Symptoms Ears, Nose, & Throat: No Symptoms Respiratory: No Cough, No Dyspnea Cardiac: No Chest Pain, No Edema, No Syncope Abdominal/Gastrointestinal: Abdominal Pain, No Nausea, No Vomiting, No Diarrhea Genitourinary Symptoms: No Dysuria Musculoskeletal: No Back Pain, No Neck Pain Skin: No Rash Neurological: No Dizziness, No Focal Weakness, No Sensory Changes Psychological: No Symptoms Endocrine: No Symptoms All Other Systems: Reviewed and Negative - Past Medical History Pertinent Past Medical History: Yes Neurological History: No Pertinent History ENT History: No Pertinent History Cardiac History: No Pertinent History Respiratory History: No Pertinent History Endocrine Medical History: No Pertinent History Musculoskeletal History: No Pertinent History GI Medical History: No Pertinent History History: No Pertinent History Psycho-Social History: No Pertinent History Female Reproductive Disorders: No Pertinent History - Past Surgical History Past Surgical History: Yes Neuro Surgical History: No Pertinent History Cardiac: No Pertinent History Respiratory: No Pertinent History Gastrointestinal: No Pertinent History Genitourinary: No Pertinent History Musculoskeletal: No Pertinent History Female Surgical History: Section Other Surgical History: IUD - Social History Smoking Status: Former smoker How long have you smoked: 6 YEARS Exposure to second hand smoke: No Alcohol Use: None Drug Use: none Patient Lives Alone: No Significant Family History: no pertinent family hx - Female History Hx Last Menstrual Period: 03/07/2019 Hx Now: No - Nursing Vital Signs Nursing Vital Signs: Initial Vital Signs Temperature 97.8 F 03/22/19 00:25 Pulse Rate 67 03/22/19 00:25 Respiratory Rate 18 03/22/19 00:25 Blood Pressure 105/60 03/22/19 00:25 O2 Sat by Pulse Oximetry 100 03/22/19 00:25 Pain Scale Pain Intensity 8 - Physical Exam General Appearance: no apparent distress, alert Eye Exam: PERRL/EOMI, eyes nml inspection Ears, Nose, Throat Exam: normal ENT inspection, pharynx normal, moist mucous membranes Neck Exam: normal inspection, non-tender, supple, full range of motion Respiratory Exam: normal breath sounds, lungs clear, No respiratory distress Cardiovascular Exam: regular rate/rhythm, normal heart sounds Gastrointestinal/Abdomen Exam: normal bowel sounds, tenderness, guarding, No mass, No rebound Back Exam: normal inspection, normal range of motion, No CVA tenderness, No vertebral tenderness Extremity Exam: normal inspection, normal range of motion, pelvis stable Neurologic Exam: alert, oriented x 3, cooperative, normal mood/affect, nml cerebellar function, sensation nml, No motor deficits Skin Exam: normal color, warm, dry SpO2: 100 - Course Nursing assessment & vital signs reviewed: Yes EKG Interpreted by Me: RATE - CT Exams Abdomen/Pelvis CT Interpretation: Negative, Tele-radiologist Report Ordered Tests: Active Orders 24 hr Category Date Time Status IV Insertion STAT Care 03/22/19 00:39 Active ABDOMEN AND PELVIS W CONTRAST [CT] Stat Exams 03/22/19 00:40 Taken AMYLASE Stat Lab 03/22/19 02:01 Completed CBC W DIFF Stat Lab 03/22/19 02:01 Completed CMP Stat Lab 03/22/19 02:01 Completed HCG QUALITATIVE,SERUM Stat Lab 03/22/19 02:01 Completed LIPASE Stat Lab 03/22/19 02:01 Completed UA W/RFX UR CULTURE Stat Lab 03/22/19 02:01 Completed Medication Summary Discontinued Medications Generic Name Dose Route Start Last Admin Trade Name Shruthi PRN Reason Stop Dose Admin Fentanyl Citrate 50 mcg 03/22/19 01:52 03/22/19 01:57 Sublimaze 100 Mcg/2 Ml IV 03/22/19 01:53 50 mcg STAT ONE Administration Fentanyl Citrate Confirm 03/22/19 01:56 Sublimaze 100 Mcg/2 Ml Administered 03/22/19 01:57 Dose 100 mcg .ROUTE .STK-MED ONE Sodium Chloride 1,000 mls @ 999 mls/hr 03/22/19 00:39 03/22/19 01:27 Sodium Chloride 0.9% 1000 Ml IV 03/22/19 01:39 999 mls/hr .Q1H1M STA Administration Sodium Chloride Confirm 03/22/19 01:24 Sodium Chloride 0.9% 1000 Ml Administered 03/22/19 01:25 Dose 1,000 mls @ ud .ROUTE .STK-MED ONE Lab/Rad Data: Laboratory Result Diagrams 03/22/19 02:01 03/22/19 02:01 Laboratory Results 03/22/19 03/22/19 03/22/19 Range/Units 02:01 02:01 02:01 WBC (4.0-10.5) K/mm3 RBC (4.1-5.4) M/mm3 Hgb (12.0-16.0) gm/dl Hct (35-47) % MCV (78-100) fl MCH (26-32) pg MCHC (32-36) g/dl RDW (11.5-14.0) % Plt Count (150-450) K/mm3 MPV (7.5-11.0) fl Gran % (36.0-66.0) % Eos # (Auto) (0-0.5) Absolute Lymphs (auto) (1.0-4.6) Absolute Monos (auto) (0.0-1.3) Lymphocytes % (24.0-44.0) % Monocytes % (0.0-12.0) % Eosinophils % (0.00-5.0) % Basophils % (0.0-0.4) % Absolute Granulocytes (1.4-6.9) Basophils # (0-0.4) Sodium 139 (137-145) mmol/L Potassium 3.7 (3.5-5.1) mmol/L Chloride 103 (98-107) mmol/L Carbon Dioxide 30 (22-30) mmol/L Anion Gap 10.4 (5-15) MEQ/L BUN 9 (7-17) mg/dL Creatinine 0.95 (0.52-1.04) mg/dL Estimated GFR > 60.0 ML/MIN Glucose 91 (74-106) mg/dL Calcium 9.0 (8.4-10.2) mg/dL Total Bilirubin 0.30 (0.2-1.3) mg/dL AST 23 (14-36) U/L ALT 9 (0-35) U/L Alkaline Phosphatase 64 (38-126) U/L Serum Total Protein 7.5 (6.3-8.2) g/dL Albumin 4.3 (3.5-5.0) g/dL Amylase 81 (30-110) U/L Lipase 167 (23-300) U/L Serum , Qual NEGATIVE (Negative) Urine Color YELLOW (YELLOW) Urine Appearance SLIGHTLY CLOUDY (CLEAR) Urine pH 5.0 (5-6) Ur Specific Kimberly 1.025 (1.005-1.025) Urine Protein NEGATIVE (Negative) Urine Ketones NEGATIVE (NEGATIVE) Urine Blood NEGATIVE (0-5) Kehinde/ul Urine Nitrite NEGATIVE (NEGATIVE) Urine Bilirubin NEGATIVE (NEGATIVE) Urine Urobilinogen NEGATIVE (0-1) mg/dL Ur Leukocyte Esterase TRACE (NEGATIVE) Urine WBC (Auto) 0-2 (0-5) /HPF Urine RBC (Auto) 0-2 (0-2) /HPF U Epithel Cells (Auto) RARE (FEW) /HPF Urine Bacteria (Auto) NONE (NEGATIVE) /HPF Urine Mucus (Auto) SLIGHT (NEGATIVE) /HPF Urine Culture Reflexed NO (NO) Urine Glucose NEGATIVE (NEGATIVE) mg/dL 03/22/19 Range/Units 02:01 WBC 8.2 (4.0-10.5) K/mm3 RBC 3.80 L (4.1-5.4) M/mm3 Hgb 10.3 L (12.0-16.0) gm/dl Hct 32.4 L (35-47) % MCV 85.3 (78-100) fl MCH 27.1 (26-32) pg MCHC 31.8 L (32-36) g/dl RDW 13.8 (11.5-14.0) % Plt Count 206 (150-450) K/mm3 MPV 10.5 (7.5-11.0) fl Gran % 52.3 (36.0-66.0) % Eos # (Auto) 0.32 (0-0.5) Absolute Lymphs (auto) 2.97 (1.0-4.6) Absolute Monos (auto) 0.59 (0.0-1.3) Lymphocytes % 36.2 (24.0-44.0) % Monocytes % 7.2 (0.0-12.0) % Eosinophils % 3.9 (0.00-5.0) % Basophils % 0.4 (0.0-0.4) % Absolute Granulocytes 4.29 (1.4-6.9) Basophils # 0.03 (0-0.4) Sodium (137-145) mmol/L Potassium (3.5-5.1) mmol/L Chloride (98-107) mmol/L Carbon Dioxide (22-30) mmol/L Anion Gap (5-15) MEQ/L BUN (7-17) mg/dL Creatinine (0.52-1.04) mg/dL Estimated GFR ML/MIN Glucose (74-106) mg/dL Calcium (8.4-10.2) mg/dL Total Bilirubin (0.2-1.3) mg/dL AST (14-36) U/L ALT (0-35) U/L Alkaline Phosphatase (38-126) U/L Serum Total Protein (6.3-8.2) g/dL Albumin (3.5-5.0) g/dL Amylase (30-110) U/L Lipase (23-300) U/L Serum , Qual (Negative) Urine Color (YELLOW) Urine Appearance (CLEAR) Urine pH (5-6) Ur Specific Kimberly (1.005-1.025) Urine Protein (Negative) Urine Ketones (NEGATIVE) Urine Blood (0-5) Kehinde/ul Urine Nitrite (NEGATIVE) Urine Bilirubin (NEGATIVE) Urine Urobilinogen (0-1) mg/dL Ur Leukocyte Esterase (NEGATIVE) Urine WBC (Auto) (0-5) /HPF Urine RBC (Auto) (0-2) /HPF U Epithel Cells (Auto) (FEW) /HPF Urine Bacteria (Auto) (NEGATIVE) /HPF Urine Mucus (Auto) (NEGATIVE) /HPF Urine Culture Reflexed (NO) Urine Glucose (NEGATIVE) mg/dL - Progress Progress: unchanged - Departure Departure Disposition: Home Clinical Impression: Pelvic pain Condition: Stable Critical Care Time: No Referrals: SHAHANA TOWNSEND [Primary Care Provider] - Instructions: Acute Pelvic Pain (DC) Prescriptions: Diclofenac Sodium 50 mg [Voltaren 50 mg] 50 mg PO TID 10 Days #30 tablet.ec
[2019-03-22] MEDS ORDERED: SUBLIMAZE 100 MCG/2 ML IV ONE (01:52)
[2019-03-22 01:54] LABS: Absolute Neutrophil Ct (ANC) 4.29 (1.4-6.9); BASOPHIL % 0.4 % (0.0-0.4); Basophil (Absolute #) 0.03 (0-0.4); Eosinophil % 3.9 % (0.00-5.0); Eosinophil (Absolute #) 0.32 (0-0.5); Hematocrit 32.4 % (35-47); Hemoglobin 10.3 gm/dl (12.0-16.0); Lymphocyte (Absolute #) 2.97 (1.0-4.6); Lymphocytes % 36.2 % (24.0-44.0); Mean Cell Volume 85.3 fl (78-100); Mean Corpuscular Hemoglobin 27.1 pg (26-32); Mean Corpuscular Hgb Concent. 31.8 g/dl (32-36); Mean Platelet Volume 10.5 fl (7.5-11.0); Monocyte (Absolute #) 0.59 (0.0-1.3); Monocytes % 7.2 % (0.0-12.0); Neutrophil % 52.3 % (36.0-66.0); Platelet Count 206 K/mm3 (150-450); Red Cell Distribution Width 13.8 % (11.5-14.0); White Blood Count 8.2 K/mm3 (4.0-10.5)
[2019-03-22] MEDS ORDERED: SUBLIMAZE 100 MCG/2 ML ONE (01:56)
[2019-03-22 02:05] LABS: ALBUMIN 4.3 g/dL (3.5-5.0); ALKALINE PHOSPHATASE 64 U/L (38-126); AMYLASE 81 U/L (30-110); ANION GAP 10.4 MEQ/L (5-15); BLOOD UREA NITROGEN 9 mg/dL (7-17); CHLORIDE 103 mmol/L (98-107); Carbon Dioxide 30 mmol/L (22-30); Creatinine 1 0.95 mg/dL (0.52-1.04); Glucose 91 mg/dL (74-106); LIPASE 167 U/L (23-300); Potassium 3.7 mmol/L (3.5-5.1); SGOT/AST 23 U/L (14-36); SGPT/ALT 9 U/L (0-35); SODIUM 139 mmol/L (137-145); Total Protein 7.5 g/dL (6.3-8.2)
[2019-03-22 02:08] LABS: Appearance SLIGHTLY CLOUDY (CLEAR); Bilirubin NEGATIVE (NEGATIVE); Blood NEGATIVE Ery/ul (0-5); Epithelial Cells RARE /HPF (FEW); Glucose NEGATIVE (NEGATIVE); Ketones NEGATIVE (NEGATIVE); Leukocyte Esterase TRACE (NEGATIVE); Mucus SLIGHT /HPF (NEGATIVE); Nitrite NEGATIVE (NEGATIVE); Protein,Urine Dip NEGATIVE (Negative); RBC 0-2 /HPF (0-2); Specific Gravity 1.025 (1.005-1.025); Urobilinogen NEGATIVE mg/dL (0-1); WBC 0-2 /HPF (0-5)
[2019-03-22 02:57] VITALS: BP 100/54; PULSE 72
[2019-03-22 02:58] VITALS: O2SAT 100
--- NOTE | 2019-03-22 08:29 | XRAY ---
Indication: Bilateral lower quadrant and suprapubic pain. Multiple contiguous axial images obtained through the abdomen and pelvis using 80 cc of Isovue-370 contrast only. Comparison: February 22, 2015. Lung bases remain clear. Heart is not enlarged. Stomach is distended with food/fluid. Noncontrasted stomach and bowel loops appear nonobstructed. Normal appendix. There is mild scattered colonic fecal debris predominantly in the right hemicolon. Partially contracted gallbladder without gallstones. New IUD in situ. No free fluid/air. Remaining liver, gallbladder, pancreas, spleen, adrenal glands, kidneys, ureters, bladder, uterus, and aorta appear unremarkable. No pathologic retroperitoneal lymphadenopathy. Osseous structures intact. Impression: 1. Mild fecal stasis without obstruction and new IUD in situ. 2. Remaining CT abdomen/pelvis with contrast exam is negative. Comment: Preliminary interpretation was made by [facility]. No critical discrepancy.
== END 2019-03-22 03:15 | disposition home or self-care (01) ==
LOC: ED 00:22
DX: R10.2 Pelvic and perineal pain (principal); R10.31 Right lower quadrant pain; R10.32 Left lower quadrant pain
CPT/HCPCS: 36415; 74177; 80053; 81001; 81025; 82150; 83690; 85025; 96360; 96374; 99284; J3010